=== PATIENT | male | born 1995 | race Two or more races ===

== ENCOUNTER 2017-10-15 17:40 | Emergency (ER) | payer OTHER ==
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
[2017-10-15 18:35] LABS: CHLORIDE,CL 101 mmol/L (98-107); SODIUM,NA 134 mmol/L (136-148)
[2017-10-15] MEDS ORDERED: Sodium Chloride 0.9% 1,000 ML IV ONE (18:56)
[2017-10-15] MEDS ORDERED: Insulin Regular, Human 100 Units/ML 10 ML Vial SUBCUT STA (18:56)
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
== END 2017-10-15 20:28 | disposition home or self-care (01) ==
LOC: MW.ED 17:40
DX: S49.92XA Unspecified injury of left shoulder and upper arm, initial encounter (principal); E11.9 Type 2 diabetes mellitus without complications; V89.2XXA Person injured in unspecified motor-vehicle accident, traffic, initial encounter; V53.5XXA Driver of pick-up truck or van injured in collision with car, pick-up truck or van in traffic accident, initial encounter
CPT/HCPCS: 36415; 70450; 70486; 71045; 72125; 72170; 73030; 80053; 80305; 81001; 82962; 83036; 85025; 93005; 96360; 99285; G0480; J7040; 99284; J1815-GY